=== PATIENT | female | born 2000 | race African-American/Black ===

== ENCOUNTER 2023-07-19 07:40 | Emergency (ER) | payer OTHER, SELFPAY ==
[2023-07-19 08:30] LABS: Bilirubin Neg (Negative); Blood, Urine Negative (Negative); Clarity Clear (Clear); Glucose, Urine (Dipstick) Normal (Negative); Ketone, Urine Negative (Negative); Leukocyte 25 (Negative); Nitrite Negative (Negative); Protein, Urine (Dipstick) 15 mg/dl (Neg-Trace); Specific Gravity, Urine 1.015 (1.005-1.030); Urobilinogen Normal mg/dL (Less than 2); pH, Urine 6.5 (5.0-9.0)
[2023-07-19 09:06] LABS: CAUTI Indications for Culture Pregnancy; RBC/HPF 0-3 HPF (0-3); WBC/HPF 0-3 HPF (0-3)
[2023-07-19 09:07] LABS: Bacteria/HPF 2+ HPF (None Seen); Mucous/LPF 1+ LPF (<2+)
[2023-07-19 09:08] LABS: Urine Culture Reflex Yes Yes
[2023-07-19] MEDS ORDERED: cefTRIAXone (ROCEPHIN) 500 MG VIAL ONE (09:53)
[2023-07-19] MEDS ORDERED: Azithromycin 250 MG TAB ONE (09:53)
[2023-07-19] MEDS ORDERED: Sterile Water 10 ML ONE (09:57)
== END 2023-07-19 10:28 | disposition home or self-care (01) ==
LOC: CSHERS 07:40
DX: N34.1 Nonspecific urethritis (principal)
CPT/HCPCS: 36415; 81001; 84702; 87086; 96372; 99283; J0696